=== PATIENT | female | born 1980 | race Two or more races ===

== ENCOUNTER 2018-03-21 18:12 | Emergency (ER) | payer SELFPAY ==
[2018-03-21] MEDS: diphenhydrAMINE HCL 25 MG CAPSULE PO (18:41)
== END 2018-03-21 19:04 | disposition home or self-care (01) ==
LOC: ER 19:04
DX: O99.513 Diseases of the respiratory system complicating pregnancy, third trimester (principal); J20.9 Acute bronchitis, unspecified; Z3A.34 34 weeks gestation of pregnancy
CPT/HCPCS: 99283; Q0163

== ENCOUNTER 2018-03-21 19:02 | Inpatient (IN) | payer SELFPAY ==
[2018-03-21 19:53] LABS: BILIRUBIN,URINE NEGATIVE (NEG); CLARITY,URINE CLEAR; COLOR,URINE YELLOW; GLUCOSE,URINE NEGATIVE (NEG); NITRITE,URINE NEGATIVE (NEG); PH,URINE 7.5; PROTEIN,URINE NEGATIVE (NEG-TRACE)
[2018-03-21 19:59] LABS: BARBITURATES NEG (NEG); BENZODIAZEPINES NEG (NEG); CANNABINOIDS NEG (NEG); COCAINE NEG (NEG); METHADONE NEG (NEG); OPIATES NEG (NEG); PHENCYCLIDINE NEG (NEG)
[2018-03-21 20:08] LABS: AMPHETAMINE/METHAMPHETAMINE NEG (NEG); ETHANOL, URINE NEG (NEG)
[2018-03-21 20:10] LABS: BACTERIA,URINE MODERATE /HPF (0-FEW); RBC,URINE 0 /HPF (0-2)
[2018-03-21 20:11] LABS: SQUAMOUS EPITHELIAL CELL,UR MANY /LPF
[2018-03-21] MEDS: IV RINGERS,LACTATED 1000ML 1,000 ML IV ×2 (20:11→21:00)
[2018-03-21] MEDS: AZITHROMYCIN 250 MG TABLET. PO (20:29)
[2018-03-21] MEDS: ACETAMINOPHEN 500 MG TABLET PO (20:29)
[2018-03-21] MEDS: ONDANSETRON PF 4 MG/2 ML VIAL. IV (20:29)
[2018-03-21] MEDS ORDERED: diphenhydrAMINE HCL 25 MG CAPSULE PO (20:45)
[2018-03-21] MEDS: guaiFENesin ORAL 200 MG/10 ML LIQUID. PO (20:48)
[2018-03-22] MEDS: guaiFENesin ORAL 200 MG/10 ML LIQUID. PO ×3 (01:02→20:52)
[2018-03-22] MEDS: IV RINGERS,LACTATED 1000ML 1,000 ML IV ×3 (05:01→23:24)
[2018-03-22 08:48] LABS: ADD MAN DIFF? NO
[2018-03-22 08:51] LABS: BASO % 0 % (0-3); EOS # 0.1 x10^3/uL (0.0-0.7); EOS % 2 % (0-3); HEMATOCRIT 27.9 % (36.0-47.0); HEMOGLOBIN 9.1 g/dL (12.0-15.5); LYMPH # 1.3 x10^3/uL (1.0-4.8); LYMPH % 20 % (24-48); MEAN CORPUSCULAR HEMOGLOBIN 24 pg (25-35); MEAN CORPUSCULAR HGB CONC 33 g/dL (31-37); MEAN CORPUSCULAR VOLUME 74 fL (79-100); MONO # 0.3 x10^3/uL (0.0-1.1); MONO % 5 % (0-9); NEUT # 4.9 x10^3uL (1.8-7.7); NEUT % 74 % (31-73); PLATELET COUNT 156 x10^3/uL (140-400); RED BLOOD COUNT 3.77 x10^6/uL (3.50-5.40); RED CELL DISTRIBUTION WIDTH 17.2 % (11.5-14.5); WHITE BLOOD COUNT 6.7 x10^3/uL (4.0-11.0)
[2018-03-22 09:04] LABS: ALBUMIN 2.1 g/dL (3.4-5.0); ALBUMIN/GLOBULIN RATIO 0.4 (1.0-1.7); ALK PHOS 181 U/L (46-116); ALT (SGPT) 13 U/L (14-59); ANION GAP 10 (6-14); AST (SGOT) 30 U/L (15-37); BLOOD UREA NITROGEN 11 mg/dL (7-20); BUN/CREATININE RATIO 18 (6-20); CALCIUM 8.7 mg/dL (8.5-10.1); CARBON DIOXIDE 24 mmol/L (21-32); CHLORIDE 104 mmol/L (98-107); CREATININE 0.6 mg/dL (0.6-1.0); GFR 113.1; GLUCOSE 111 mg/dL (70-99); POTASSIUM 3.7 mmol/L (3.5-5.1); SODIUM 138 mmol/L (136-145); TOTAL BILIRUBIN 0.4 mg/dL (0.2-1.0); TOTAL PROTEIN 7.3 g/dL (6.4-8.2)
[2018-03-22] MEDS: AZITHROMYCIN 250 MG TABLET. PO (20:52)
[2018-03-22] MEDS: PRENATAL MULTIVITAMIN TABLET. PO (20:52)
[2018-03-22] MEDS: FERROUS SULFATE 325 MG TABLET. PO (20:52)
[2018-03-23 04:45] LABS: ADD MAN DIFF? NO
[2018-03-23 04:57] LABS: BASO % 0 % (0-3); EOS # 0.2 x10^3/uL (0.0-0.7); EOS % 3 % (0-3); HEMATOCRIT 27.5 % (36.0-47.0); HEMOGLOBIN 9.1 g/dL (12.0-15.5); LYMPH # 1.6 x10^3/uL (1.0-4.8); LYMPH % 28 % (24-48); MEAN CORPUSCULAR HEMOGLOBIN 25 pg (25-35); MEAN CORPUSCULAR HGB CONC 33 g/dL (31-37); MEAN CORPUSCULAR VOLUME 74 fL (79-100); MONO # 0.4 x10^3/uL (0.0-1.1); MONO % 7 % (0-9); NEUT # 3.5 x10^3uL (1.8-7.7); NEUT % 62 % (31-73); PLATELET COUNT 152 x10^3/uL (140-400); RED BLOOD COUNT 3.71 x10^6/uL (3.50-5.40); RED CELL DISTRIBUTION WIDTH 16.8 % (11.5-14.5); WHITE BLOOD COUNT 5.6 x10^3/uL (4.0-11.0)
[2018-03-23] MEDS ORDERED: FERROUS SULFATE 325 MG TABLET. PO (08:00)
[2018-03-23] MEDS ORDERED: PRENATAL MULTIVITAMIN TABLET. PO (09:00)
== END 2018-03-23 13:25 | disposition home or self-care (01) | DRG 781 ==
LOC: 3 SO LND 19:02
DX: O99.513 Diseases of the respiratory system complicating pregnancy, third trimester (principal); J18.9 Pneumonia, unspecified organism; J06.9 Acute upper respiratory infection, unspecified; Z3A.37 37 weeks gestation of pregnancy
CPT/HCPCS: 36415; 71046; 80053; 80307; 81001; 85025; 87086; J2405; J7120; Q0144

== ENCOUNTER 2018-04-07 20:33 | Inpatient (IN) | payer SELFPAY ==
[2018-04-07] MEDS: IV RINGERS,LACTATED 1000ML 1,000 ML IV (20:37)
[2018-04-07 21:06] LABS: BILIRUBIN,URINE NEGATIVE (NEG); CLARITY,URINE CLEAR; GLUCOSE,URINE NEGATIVE (NEG); NITRITE,URINE NEGATIVE (NEG); PROTEIN,URINE NEGATIVE (NEG-TRACE); UROBILINOGEN,URINE 0.2 mg/dL (0.2 mg/dL)
[2018-04-07 21:10] LABS: COLOR,URINE STRAW
[2018-04-07 21:12] LABS: AMPHETAMINE/METHAMPHETAMINE NEG (NEG); BARBITURATES NEG (NEG); BENZODIAZEPINES NEG (NEG); CANNABINOIDS NEG (NEG); COCAINE NEG (NEG); ETHANOL, URINE NEG (NEG); METHADONE NEG (NEG); OPIATES NEG (NEG); PHENCYCLIDINE NEG (NEG)
[2018-04-07 21:15] LABS: BACTERIA,URINE FEW /HPF (0-FEW); RBC,URINE 0 /HPF (0-2); SQUAMOUS EPITHELIAL CELL,UR MANY /LPF; WBC,URINE OCC /HPF (0-4)
[2018-04-07] MEDS ORDERED: IV RINGERS,LACTATED 1000ML 1,000 ML IV (22:05)
[2018-04-07] MEDS ORDERED: fentaNYL PF VIAL 100 MCG/2 ML VIAL IV (22:15)
[2018-04-07] MEDS ORDERED: 0.9 % SODIUM CHLORIDE 10 ML DISP.SYRIN. IV (22:15)
[2018-04-07] MEDS ORDERED: LIDOCAINE 1% PF 30 ML VIAL. INJ (22:15)
[2018-04-07] MEDS ORDERED: TERBUTALINE 1 MG/ML VIAL. SQ (22:15)
[2018-04-07] MEDS ORDERED: ACETAMINOPHEN 325 MG TABLET. PO (22:15)
[2018-04-07] MEDS ORDERED: ONDANSETRON PF 4 MG/2 ML VIAL. IV (22:15)
[2018-04-07] MEDS: fentaNYL PF VIAL 100 MCG/2 ML VIAL IV (22:26)
[2018-04-07 22:37] LABS: ADD MAN DIFF? NO
[2018-04-07 22:44] LABS: BASO % 0 % (0-3); EOS % 0 % (0-3); HEMATOCRIT 31.1 % (36.0-47.0); HEMOGLOBIN 10.2 g/dL (12.0-15.5); LYMPH # 2.2 x10^3/uL (1.0-4.8); LYMPH % 22 % (24-48); MEAN CORPUSCULAR HEMOGLOBIN 24 pg (25-35); MEAN CORPUSCULAR HGB CONC 33 g/dL (31-37); MEAN CORPUSCULAR VOLUME 73 fL (79-100); MONO # 0.5 x10^3/uL (0.0-1.1); MONO % 5 % (0-9); NEUT # 7.2 x10^3uL (1.8-7.7); NEUT % 73 % (31-73); PLATELET COUNT 179 x10^3/uL (140-400); RED BLOOD COUNT 4.23 x10^6/uL (3.50-5.40); RED CELL DISTRIBUTION WIDTH 17.9 % (11.5-14.5); WHITE BLOOD COUNT 9.9 x10^3/uL (4.0-11.0)
[2018-04-08] MEDS ORDERED: PHENYLEPH/MINERAL OIL/PETROLAT RECTAL OINTMENT 28GM TUBE. RC (00:30)
[2018-04-08] MEDS ORDERED: HYDROCORTISONE 1% TOPICAL OINTMENT 30GM TUBE. TP (00:30)
[2018-04-08] MEDS ORDERED: OXYTOCIN 30 UNIT/500 ML PREMIX 500 ML IV (00:30)
[2018-04-08] MEDS ORDERED: MAGNESIUM HYDROXIDE 2,400 MG/30 ML ORAL.SUSP. PO (00:30)
[2018-04-08] MEDS ORDERED: MMR per PROTOCOL. MC (00:30)
[2018-04-08] MEDS ORDERED: BENZOCAINE 20% TOPICAL AEROSOL SPRAY 57GM CAN. TP (00:30)
[2018-04-08] MEDS ORDERED: ZOLPIDEM 5 MG TABLET. PO (00:30)
[2018-04-08] MEDS ORDERED: MAG HYDROX/ALUMINUM HYD/SIMETH 30 ML ORAL.SUSP PO (00:30)
[2018-04-08] MEDS ORDERED: ACETAMINOPHEN 325 MG TABLET. PO (00:30)
[2018-04-08] MEDS ORDERED: diphenhydrAMINE HCL 25 MG CAPSULE PO (00:30)
[2018-04-08] MEDS ORDERED: 0.9 % SODIUM CHLORIDE 10 ML DISP.SYRIN. IV (00:30)
[2018-04-08] MEDS ORDERED: oxyCODONE/APAP 5/325 1 TAB TABLET PO (00:30)
[2018-04-08] MEDS ORDERED: SIMETHICONE 80 MG TAB.CHEW PO (00:30)
[2018-04-08] MEDS ORDERED: IBUPROFEN 800 MG TABLET. PO (00:30)
[2018-04-08] MEDS: IBUPROFEN 800 MG TABLET. PO (01:40)
[2018-04-08] MEDS: OXYTOCIN 30 UNIT/500 ML PREMIX 500 ML IV (01:41)
[2018-04-09 04:07] LABS: ADD MAN DIFF? NO
[2018-04-09 04:19] LABS: BASO % 0 % (0-3); EOS # 0.1 x10^3/uL (0.0-0.7); EOS % 1 % (0-3); HEMATOCRIT 27.1 % (36.0-47.0); HEMOGLOBIN 8.9 g/dL (12.0-15.5); LYMPH # 2.5 x10^3/uL (1.0-4.8); LYMPH % 33 % (24-48); MEAN CORPUSCULAR HEMOGLOBIN 24 pg (25-35); MEAN CORPUSCULAR HGB CONC 33 g/dL (31-37); MEAN CORPUSCULAR VOLUME 73 fL (79-100); MONO # 0.4 x10^3/uL (0.0-1.1); MONO % 5 % (0-9); NEUT # 4.7 x10^3uL (1.8-7.7); NEUT % 61 % (31-73); PLATELET COUNT 165 x10^3/uL (140-400); RED BLOOD COUNT 3.72 x10^6/uL (3.50-5.40); RED CELL DISTRIBUTION WIDTH 17.7 % (11.5-14.5); WHITE BLOOD COUNT 7.6 x10^3/uL (4.0-11.0)
[2018-04-09] MEDS ORDERED: FERROUS SULFATE 325 MG TABLET. PO (08:00)
[2018-04-09] MEDS: DOCUSATE SODIUM 100 MG CAPSULE. PO (08:00)
== END 2018-04-09 11:47 | disposition home or self-care (01) | DRG 775 ==
LOC: 3 SO LND 20:33 → 3 NORTH 04-08 02:55
PROC: 10E0XZZ Delivery of Products of Conception, External Approach (ICD-10-PCS; principal; 2018-04-08)
DX: O69.81X0 Labor and delivery complicated by cord around neck, without compression, not applicable or unspecified (principal); Z37.0 Single live birth; Z3A.37 37 weeks gestation of pregnancy
CPT/HCPCS: 36415; 80307; 81001; 85025; 86592; 86850; 86900; 86901; 87086; G0378; J2590; J3010; J7120